=== PATIENT | female | born 1960 | race Caucasian/White ===

== ENCOUNTER 2019-07-19 08:25 | Emergency (ER) | payer OTHER ==
--- OUTSIDE RECORDS SUMMARY | 2019-07-19 08:27 | XMS REPORT ---
:1960 Author Organization eClinicalWorks Care Team Providers Name Role Phone [place]orageReema perez Provider Role Unavailable Allergies, Adverse Reactions, Alerts Substance Reaction Event Type statin myalgias Drug Allergy Belsomra hallucinations Drug Allergy Problems Problem Type Condition Code Onset Dates Condition Status Problem Depression with anxiety F41.8 Active Problem Infectious gastroenteritis and A09 Active colitis, unspecified Problem Cough R05 Active Problem Mixed stress and urge urinary N39.46 Active incontinence Problem Primary insomnia F51.01 Active Problem Other chronic pain G89.29 Active Problem Fever, unspecified R50.9 Active Problem DTaP/IPV/HBV vaccination Z23 Active Problem Other insomnia not due to a F51.09 Active substance or known physiological condition Problem Acute bronchitis due to other J20.8 Active specified organisms Assessment Other chronic pain G89.29 Active Assessment Low back pain M54.5 Active Assessment Type 2 diabetes mellitus without E11.9 Active complication, unspecified terminal gauger insulin use status Assessment Primary insomnia F51.01 Active Problem Type 2 diabetes mellitus without E11.9 Active complication, unspecified care home insulin use status Assessment Other insomnia not due to a F51.09 Active substance or known physiological condition Problem Adult hypothyroidism E03.9 Active Medications Medication Code Code Instructions Start End Status Dosage System Date Date Trulicity [facility] 64943828274 0.75mg/0.5ml SQ Active one once a week injection Effexor XR [facility] 27276262908 150 MG Orally Active 1 capsule Once a day with food [place] Thyroid ND 04806793365 60 MG Orally Active 1 tablet Once a day Farxiga ND 80903903634 10mg By Mouth Active 1 Daily Diclofenac ND 34667189198 35 MG Orally Jan 04, Apr 04, Active 1 capsule Three times a 2018 2018 with food or day milk as needed Zolpidem ND 63171476305 6.25 MG Orally Jun 06, Active 1 tablet at Tartrate ER Once a day 2019 bedtime as needed Oxybutynin [facility] 81517265788 5 MG Orally Active 1 tablet Chloride Once a day Results No Known Results Summary Purpose eClinicalWorks Submission
--- OUTSIDE RECORDS SUMMARY | 2019-07-19 08:28 | XMS REPORT ---
:1960 Author Organization eClinicalWorks Care Team Providers Name Role Phone Reema Ogden Provider Role Unavailable Allergies, Adverse Reactions, Alerts [...] to other J20.8 Active specified organisms Assessment Adult hypothyroidism E03.9 Active Assessment Mixed stress and urge urinary N39.46 Active incontinence Assessment Depression with anxiety F41.8 Active Assessment Other chronic pain G89.29 Active Problem Type 2 diabetes mellitus without E11.9 Active complication, unspecified intermediate frame tender insulin use status Assessment Primary insomnia F51.01 Active Problem Adult hypothyroidism E03.9 Active Medications Medication Code Code Instructions Start End Status Dosage System Date Date Zolpidem ND 80115700634 6.25 MG Orally Jun 06, Active 1 tablet at Tartrate ER Once a day 2019 bedtime as needed Diclofenac ND 34463421871 50 MG Orally Jan 05, Active 1 tablet Sodium Three times a 2019 with food or day milk [place] Thyroid ND 31927744320 90 MG Orally Active 1 tablet Once a day Trulicity ND 08744979029 0.75mg/0.5ml SQ Active one once a week injection Farxiga ND 07251722077 10mg By Mouth Active 1 Daily Effexor XR ND 91684073731 150 MG Orally Active 1 capsule Once a day with food Oxybutynin ND 20365709161 5 MG Orally Active 1 tablet Chloride Once a day Results No Known Results Summary Purpose eClinicalWorks Submission
--- OUTSIDE RECORDS SUMMARY | 2019-07-19 08:28 | XMS REPORT ---
:1960 Author Organization eClinicalWorks Care Team Providers Name Role Phone Reema Ogden Provider Role Unavailable Allergies No Known Allergies Problems Problem Type Condition Code Onset Dates Condition Status Problem Depression with anxiety F41.8 Active Problem Infectious gastroenteritis and A09 Active colitis, unspecified Problem Cough R05 Active Assessment Adult hypothyroidism E03.9 Active Problem Type 2 diabetes mellitus without E11.9 Active complication, unspecified ocean transportation intermediary insulin use status Problem Adult hypothyroidism E03.9 Active Problem Mixed stress and urge urinary N39.46 Active incontinence Problem Primary insomnia F51.01 Active Problem Other chronic pain G89.29 Active Problem Fever, unspecified R50.9 Active Problem DTaP/IPV/HBV vaccination Z23 Active Problem Other insomnia not due to a F51.09 Active substance or known physiological condition Problem Acute bronchitis due to other J20.8 Active specified organisms Medications Medication Code Code Instructions Start End Date Status Dosage System Date [place] Thyroid [facility] 45982337244 120 MG Orally Active 1 tablet Once a day Results No Known Results Summary Purpose eClinicalWorks Submission
--- OUTSIDE RECORDS SUMMARY | 2019-07-19 08:28 | XMS REPORT ---
[...] diabetes mellitus without E11.9 Active complication, unspecified termite exterminator helper insulin use status Problem Adult hypothyroidism E03.9 Active Problem Mixed stress and urge urinary N39.46 Active incontinence Problem Primary insomnia F51.01 Active Problem Other chronic pain G89.29 Active Problem Fever, unspecified R50.9 Active Problem DTaP/IPV/HBV vaccination Z23 Active Problem Other insomnia not due to a F51.09 Active substance or known physiological condition Problem Acute bronchitis due to other J20.8 Active specified organisms Medications No Known Medications Results No Known Results Summary Purpose eClinicalWorks Submission
--- OUTSIDE RECORDS SUMMARY | 2019-07-19 08:28 | XMS REPORT ---
:1960 Author Organization eClinicalWorks Care Team Providers Name Role Phone WardReema perez Provider Role Unavailable Allergies No Known Allergies Problems Problem Type Condition Code Onset Dates Condition Status Problem Depression with anxiety F41.8 Active Problem Infectious gastroenteritis and A09 Active colitis, unspecified Problem Cough R05 Active Problem Type 2 diabetes mellitus without E11.9 Active complication, unspecified technician terminal and repeater insulin use status Problem Adult hypothyroidism E03.9 [...] Start End Date Status Dosage System Date [place] Thyroid TXC 05576826217 120 MG Orally Active 1 tablet Once a day Results No Known Results Summary Purpose eClinicalWorks Submission
--- OUTSIDE RECORDS SUMMARY | 2019-07-19 08:28 | XMS REPORT ---
:1960 Author Organization eClinicalWorks Care Team Providers Name Role Phone WareReema perez Provider Role Unavailable Allergies No Known Allergies Problems Problem Type Condition Code Onset Dates Condition Status Problem Depression with anxiety F41.8 Active Problem Infectious gastroenteritis and A09 Active colitis, unspecified Problem Cough R05 Active Assessment Adult hypothyroidism E03.9 Active Problem Type 2 diabetes mellitus without E11.9 Active complication, unspecified rodent exterminator insulin use status Problem Adult hypothyroidism E03.9 [...] Start End Date Status Dosage System Date [place] Thyroid [facility] 51458096271 90 MG Orally Active 1 tablet Once a day Results No Known Results Summary Purpose eClinicalWorks Submission
--- OUTSIDE RECORDS SUMMARY | 2019-07-19 08:28 | XMS REPORT ---
:1960 Author Organization eClinicalWorks Care Team Providers Name Role Phone Reema Ogden Provider Role Unavailable Allergies No Known Allergies Problems Problem Type Condition Code Onset Dates Condition Status Problem Depression with anxiety F41.8 Active Problem Infectious gastroenteritis and A09 Active colitis, unspecified Problem Cough R05 Active Assessment Type 2 diabetes mellitus without E11.9 Active complication, unspecified intermediate card tender insulin use status Problem Type 2 diabetes mellitus without E11.9 Active complication, unspecified care home insulin use status Problem Adult hypothyroidism E03.9 [...] Start End Status Dosage System Date Date Diclofenac NDC 43442792159 50 MG Orally Jan 05, Apr 05, Active 1 tablet Sodium Three times a 2018 2018 with food day or milk Diclofenac NDC 81182653878 35 MG Orally Jan 04, Jan 05, Inactive 1 capsule Three times a 2018 2018 with food day or milk as needed Results No Known Results Summary Purpose eClinicalWorks Submission
--- OUTSIDE RECORDS SUMMARY | 2019-07-19 08:28 | XMS REPORT ---
[...] to other J20.8 Active specified organisms Assessment Type 2 diabetes mellitus without E11.9 Active complication, unspecified termite control servicer insulin use status Assessment Adult hypothyroidism E03.9 Active Assessment Depression with anxiety F41.8 Active Assessment Mixed stress and urge urinary N39.46 Active incontinence Problem Type 2 diabetes mellitus without E11.9 Active complication, unspecified termite control servicer insulin use status Assessment Primary insomnia F51.01 Active Problem Adult hypothyroidism E03.9 Active Medications Medication Code Code Instructions Start End Status Dosage System Date Date [facility] 10710051620 10mg By Mouth Active 1 Daily Zolpidem ND 23807237852 6.25 MG Orally Active 1 tablet at Tartrate ER Once a day bedtime as needed Diclofenac ND 27922547990 50 MG Orally Jan 05, Active 1 tablet Sodium Three times a 2018 with food day or milk BD [place] ND 12058153812 32G X 4 MM Active USE [place] U/F DIRECTED WITH TRESIBA Effexor XR ND 14267669402 150 MG Orally Active 1 capsule Once a day with food Oxybutynin ND 03547980880 5 MG Orally Once Active 1 tablet Chloride a day [place] ND 90025554892 200 UNIT/ML Active as directed FlexTouch Subcutaneous [place] Thyroid ND 32599356825 120 MG Orally Active 1 tablet Once a day Results No Known Results Summary Purpose eClinicalWorks Submission
[2019-07-19] MEDS ORDERED: IBUPROFEN 200 MG TAB PO ONE (08:50)
[2019-07-19] MEDS ORDERED: IBUPROFEN 400 MG TAB ONE (08:51)
--- NOTE | 2019-07-19 10:11 | ER ---
Nurse's Notes [facility] Name: Analilia Hines Age: 58 yrs Sex: Female : 1960 Arrival Date: 07/19/2019 Time: 08:27 Bed 19 Private MD: Diagnosis: Headache;Viral infection of unspecified site Presentation: 07/18 08:50 Chief complaint: Patient states: I have felt bad since about Wednesday. Sinus pressure, dm5 drainage and body aches. Coronavirus screen: The patient has NOT traveled to a country currently being monitored by the [facility] within the last 14 days. The patient has NOT had contact with any known and/or suspected case of coronavirus. Ebola Screen: Patient negative for fever greater than or equal to 101.5 degrees Fahrenheit, and additional compatible Ebola Virus Disease symptoms Patient denies exposure to infectious person. Patient denies travel to an Ebola-affected area in the 21 days before illness onset. No symptoms or risks identified at this time. Initial Sepsis Screen: Does the patient meet any 2 criteria? HR > 90 bpm. No. Patient's initial sepsis screen is negative. Does the patient have a suspected source of infection? No. Patient's initial sepsis screen is negative. Risk Assessment: Do you want to hurt yourself or someone else? Patient reports no desire to harm self or others. 08:50 Method Of Arrival: Ambulatory dm5 08:50 Acuity: MEHRDAD 4 dm5 12:00 Onset of symptoms was July 16, 2019 at 08:00. vc Triage Assessment: 08:52 General: Appears in no apparent distress. uncomfortable, Behavior is calm, cooperative. dm5 Pain: Complains of pain in generalized body aches. Historical: - Allergies: 08:52 PENICILLINS; dm5 - Immunization history:: Adult Immunizations up to date. - Social history:: Smoking status: unknown. Screenin:39 Abuse screen: Denies threats or abuse. Nutritional screening: No deficits noted. vc Tuberculosis screening: No symptoms or risk factors identified. Fall Risk None identified. Assessment: 11:45 General: Appears in no apparent distress. uncomfortable, Behavior is calm, cooperative, vc appropriate for age. Pain: Complains of pain in generalized body pain. Neuro: Level of Consciousness is awake, alert, obeys commands, Oriented to person, place, time, situation, Appropriate for age. Cardiovascular: Patient's skin is warm and dry. Respiratory: Airway is patent Respiratory effort is even, unlabored, Respiratory pattern is regular, symmetrical. GI: Abdomen is flat. : No signs and/or symptoms were reported regarding the genitourinary system. EENT: No signs and/or symptoms were reported regarding the EENT system. Derm: Skin temperature is warm. Musculoskeletal: No signs and/or symptoms reported regarding the musculoskeletal system. 12:45 Reassessment: Patient and/or family updated on plan of care and expected duration. Pain vc level reassessed. Patient is alert, oriented x 3, equal unlabored respirations, skin warm/dry/pink. Patient states symptoms have improved. Vital Signs: 08:50 BP 102 / 72; Pulse 100; Resp 20; Temp 97.8(TE); Pulse Ox 100% on R/A; Weight 66.22 kg; dm5 Height 5 ft. 4 in. (162.56 cm); Pain 8/10; 10:03 BP 113 / 66; Pulse 98; Resp 20; Pain 6/10; ms 11:45 BP 118 / 66; Pulse 92; Resp 20; Pulse Ox 98% on R/A; vc 12:30 BP 115 / 73; Pulse 96; Resp 18; Temp 98.4(O); Pulse Ox 98% on R/A; vc 08:50 Body Mass Index 25.06 (66.22 kg, 162.56 cm) dm5 ED Course: 08:27 Patient arrived in ED. ag5 08:36 Ag Patel MD is Attending Physician. kdr 08:49 Bianka Merino, RN is Primary Nurse. dm5 08:51 Triage completed. dm5 08:52 Arm band placed on left wrist. Patient placed in an exam room. dm5 10:26 Flu Sent. dm5 10:40 Inserted saline lock: 20 gauge in left antecubital area, using aseptic technique. Blood dm5 collected. 12:39 Primary Nurse role handed off by Bianka Merino, RN vc 12:39 Estella Greenberg, KWADWO is Primary Nurse. vc 12:40 Patient has correct armband on for positive identification. Side rails up X 1. Pulse ox vc on. NIBP on. 12:50 No provider procedures requiring assistance completed. IV discontinued, intact, vc bleeding controlled, No redness/swelling at site. Pressure dressing applied. Administered Medications: 08:50 Drug: Motrin 600 mg Route: PO; dm5 12:43 Follow up: Response: No adverse reaction vc 10:57 Drug: TORadol - Ketorolac 15 mg Route: IVP; Site: left antecubital; dm5 12:40 Follow up: Response: No adverse reaction; Pain is decreased vc 10:57 Drug: NS 0.9% 500 ml Route: IV; Rate: bolus; Site: left antecubital; dm5 12:40 Follow up: IV Status: Completed infusion; IV Intake: 500ml vc Intake: 12:40 IV: 500ml; Total: 500ml. vc Outcome: 10:10 Discharge ordered by . kdr 12:31 Discharge ordered by MD. kdr 12:54 Patient left the ED. vc 13:00 Discharged to home ambulatory, with significant other. vc 13:00 Condition: good 13:00 Discharge instructions given to patient, significant other, Instructed on discharge instructions, follow up and referral plans. medication usage, Demonstrated understanding of instructions, follow-up care, medications, Prescriptions given X 1. Signatures: Bianka Merino, RN RN dm5 Ag Patel MD MD kdr Villarreal, Maria ms Gaskin, Ajare 5 Estella Greenberg RN RN vc
--- NOTE | 2019-07-19 10:11 | EDPHYS ---
Physician Documentation [facility] Name: Analilia Hines Age: 58 yrs Sex: Female : 1960 Arrival Date: 07/19/2019 Time: 08:27 Bed 19 Private MD: ED Physician Ag Patel HPI: 07/18 11:51 This 58 yrs old Female presents to ER via Ambulatory with complaints of Flu kdr Symptoms. 11:51 The patient states that she has been feeling poorly since Wednesday. States that she kdr generally feels like she has the flu though she has not had any fever. She is a breast cancer survivor and is concerned that she may have mets to the brain since she feels a lot of pressure behind her eyes and on the right side of her forehead and head. Onset: The symptoms/episode began/occurred gradually, Since Wednesday. Severity of symptoms: At their worst the symptoms were moderate in the emergency department the symptoms are unchanged. The patient has not experienced similar symptoms in the past. The patient has not recently seen a physician. Historical: - Allergies: 08:52 PENICILLINS; dm5 - Immunization history:: Adult Immunizations up to date. - Social history:: Smoking status: unknown. ROS: 11:51 Constitutional: Negative for fever, chills, and weight loss, Eyes: Negative for injury, kdr pain, redness, and discharge, ENT: Negative for injury, pain, and discharge, Neck: Negative for injury, pain, and swelling, Cardiovascular: Negative for chest pain, palpitations, and edema, Respiratory: Negative for shortness of breath, cough, wheezing, and pleuritic chest pain, Abdomen/GI: Negative for abdominal pain, nausea, vomiting, diarrhea, and constipation, Back: Negative for injury and pain, : Negative for injury, bleeding, discharge, and swelling, MS/Extremity: Negative for injury and deformity, Skin: Negative for injury, rash, and discoloration, Neuro: Negative for headache, weakness, numbness, tingling, and seizure activity. Psych: Negative for depression, anxiety, suicide ideation, homicidal ideation, and hallucinations, Allergy/Immunology: Negative for hives, rash, and allergies, Endocrine: Negative for neck swelling, polydipsia, polyuria, polyphagia, and marked weight changes, Hematologic/Lymphatic: Negative for swollen nodes, abnormal bleeding, and unusual bruising. Exam: 11:51 Constitutional: This is a well developed, well nourished patient who is awake, alert, kdr and in no acute distress. Head/Face: Normocephalic, atraumatic. Eyes: Pupils equal round and reactive to light, extra-ocular motions intact. Lids and lashes normal. Conjunctiva and sclera are non-icteric and not injected. Cornea within normal limits. Periorbital areas with no swelling, redness, or edema. Neck: Trachea midline, no thyromegaly or masses palpated, and no cervical lymphadenopathy. Supple, full range of motion without nuchal rigidity, or vertebral point tenderness. No Meningismus. Chest/axilla: Normal chest wall appearance and motion. Nontender with no deformity. No lesions are appreciated. Cardiovascular: Regular rate and rhythm with a normal S1 and S2. No gallops, murmurs, or rubs. Normal PMI, no JVD. No pulse deficits. Respiratory: Lungs have equal breath sounds bilaterally, clear to auscultation and percussion. No rales, rhonchi or wheezes noted. No increased work of breathing, no retractions or nasal flaring. Abdomen/GI: Soft, non-tender, with normal bowel sounds. No distension or tympany. No guarding or rebound. No evidence of tenderness throughout. Back: No spinal tenderness. No costovertebral tenderness. Full range of motion. Skin: Warm, dry with normal turgor. Normal color with no rashes, no lesions, and no evidence of cellulitis. MS/ Extremity: Pulses equal, no cyanosis. Neurovascular intact. Full, normal range of motion. Neuro: Awake and alert, GCS 15, oriented to person, place, time, and situation. Cranial nerves II-XII grossly intact. Motor strength 5/5 in all extremities. Sensory grossly intact. Cerebellar exam normal. Normal gait. Psych: Awake, alert, with orientation to person, place and time. Behavior, mood, and affect are within normal limits. Vital Signs: 08:50 BP 102 / 72; Pulse 100; Resp 20; Temp 97.8(TE); Pulse Ox 100% on R/A; Weight 66.22 kg; dm5 Height 5 ft. 4 in. (162.56 cm); Pain 8/10; 10:03 BP 113 / 66; Pulse 98; Resp 20; Pain 6/10; ms 11:45 BP 118 / 66; Pulse 92; Resp 20; Pulse Ox 98% on R/A; vc 12:30 BP 115 / 73; Pulse 96; Resp 18; Temp 98.4(O); Pulse Ox 98% on R/A; vc 08:50 Body Mass Index 25.06 (66.22 kg, 162.56 cm) dm5 MDM: 10:10 Patient medically screened. kdr 11:51 Data reviewed: vital signs, nurses notes, lab test result(s), radiologic studies. kdr Counseling: I had a detailed discussion with the patient and/or guardian regarding: the historical points, exam findings, and any diagnostic results supporting the discharge/admit diagnosis, lab results, radiology results. 07/18 08:42 Order name: Flu kdr 07/18 10:09 Order name: Influenza Screen (A ; Complete Time: 10:29 EDMS 07/18 10:28 Order name: CBC with Diff [facility] 07/18 10:28 Order name: Chem 7 kdr 07/18 10:28 Order name: Lactate kdr 07/18 10:28 Order name: Procalcitonin kdr 07/18 10:28 Order name: CT Head Brain wo Cont kdr 07/18 10:54 Order name: CBC with Automated Diff; Complete Time: 12:29 EDMS 07/18 11:10 Order name: Basic Metabolic Panel; Complete Time: 12:29 EDMS 07/18 11:22 Order name: Lactate; Complete Time: 12:29 EDMS 07/18 11:53 Order name: Procalcitonin; Complete Time: 12:29 EDMS 07/18 12:25 Order name: CBC Smear Scan; Complete Time: 12:29 EDMS Administered Medications: 08:50 Drug: Motrin 600 mg Route: PO; dm5 12:43 Follow up: Response: No adverse reaction vc 10:57 Drug: TORadol - Ketorolac 15 mg Route: IVP; Site: left antecubital; dm5 12:40 Follow up: Response: No adverse reaction; Pain is decreased vc 10:57 Drug: NS 0.9% 500 ml Route: IV; Rate: bolus; Site: left antecubital; dm5 12:40 Follow up: IV Status: Completed infusion; IV Intake: 500ml vc Disposition: 03/11/20 12:31 Discharged to Home. Impression: Headache, Viral infection of unspecified site. - Condition is Stable. - Discharge Instructions: General Headache Without Cause, Musculoskeletal Pain. - Prescriptions for Tamiflu 75 mg Oral Capsule - take 1 tablet by ORAL route every 12 hours for 5 days; 10 tablet. - Medication Reconciliation Form, Thank You Letter form. - Follow up: Private Physician; When: 2 - 3 days; Reason: If symptoms return, Further diagnostic work-up, Recheck today's complaints, Continuance of care, Re-evaluation by your physician. - Problem is new. - Symptoms have improved. Signatures: Dispatcher [employer] EDMS Bianka Merino RN RN dm5 Ag Patel MD MD kdr Estella Greenberg RN RN vc Corrections: (The following items were deleted from the chart) 10:23 10:10 07/19/2019 10:10 Discharged to Home. Impression: Acute upper respiratory kdr infection, unspecified; Viral infection, unspecified. Condition is Stable. Forms are Medication Reconciliation Form, Thank You Letter, Antibiotic Education, Prescription Opioid Use. Follow up: Private Physician; When: 2 - 3 days; Reason: If symptoms return, Further diagnostic work-up, Recheck today's complaints, Continuance of care, Re-evaluation by your physician. Problem is new. Symptoms are unchanged. kdr 12:54 12:31 07/19/2019 12:31 Discharged to Home. Impression: Headache; Viral infection of vc unspecified site. Condition is Stable. Prescriptions for Tamiflu 75 mg Oral Capsule - take 1 tablet by ORAL route every 12 hours for 5 days; 10 tablet, Ibuprofen 600 mg Oral Tablet - take 1 tablet by ORAL route every 6 hours As needed take with food; 30 tablet. and Forms are Medication Reconciliation Form, Thank You Letter, Antibiotic Education, Prescription Opioid Use. Follow up: Private Physician; When: 2 - 3 days; Reason: If symptoms return, Further diagnostic work-up, Recheck today's complaints, Continuance of care, Re-evaluation by your physician. Problem is new. Symptoms have improved. kdr
[2019-07-19 10:50] LABS: Absolute Lymphocytes (CBC) 0.1 K/uL (0.7-4.9); Basophils % 0.2 % (0-1.3); Hematocrit 42.6 % (36.0-45.0); Lymphocytes % 2.4 % (15.3-44.8); MPV 7.6 fL (7.6-11.3); RBC Red Blood Cell Count 4.68 M/uL (3.86-4.86)
[2019-07-19] MEDS ORDERED: NA CHLORIDE 0.9% 500 ML ONE (10:52)
[2019-07-19] MEDS ORDERED: KETOROLAC 30 MG/ML INJ ONE (10:52)
--- NOTE | 2019-07-19 10:56 | RAD REPORT ---
EXAM DESCRIPTION: CT - Head Brain Wo Cont - 07/19/2019 10:45 am CLINICAL HISTORY: HEADACHE Headache, drowsiness, sinus pressure COMPARISON: No comparisons TECHNIQUE: All CT scans are performed using dose optimization technique as appropriate and may inclu de automated exposure control or mA/KV adjustment according to patient size. FINDINGS: No intracranial hemorrhage, hydrocephalus or extra-axial fluid collection.No areas of brai n edema or evidence of midline shift. The paranasal sinuses and mastoids are clear. The calvarium is intact. IMPRESSION: No acute intracranial abnormality.
[2019-07-19 11:08] LABS: BUN Blood Urea Nitrogen 15 mg/dL (7-18); Bicarbonate 22 mmol/L (21-32); Glucose Level 132 mg/dL (74-106); Potassium 3.8 mmol/L (3.5-5.1); Sodium Level 136 mmol/L (136-145)
[2019-07-19 12:24] LABS: Blood Morphology Comment NOT SEEN (NOT SEEN); Platelet Estimate DECR; White Blood Cell Scan OK
[2019-07-19 13:09] VITALS: O2SAT 98
[2019-07-19 13:11] VITALS: BP 115/73; TEMP 98.4
== END 2019-07-19 12:54 | disposition home or self-care (01) ==
LOC: ER 08:25
DX: R51 Headache (principal); B34.9 Viral infection, unspecified; Z88.0 Allergy status to penicillin
CPT/HCPCS: 96361; 85025; 80048; 36415; 83605; 84145; 87804 ×2; 70450; 96374; 99284; J7040